=== PATIENT | male | born 1990 | race Caucasian/White ===

== ENCOUNTER 2019-01-04 16:58 | Emergency (ER) | payer MEDICAID, OTHER ==
--- NOTE | 2019-01-04 18:39 | EDPHY ---
H & P Stated Complaint: l shoulder inj snowboarding Time Seen by Provider: 01/04/19 18:23 HPI/ROS: CHIEF COMPLAINT: Left shoulder and chest pain HISTORY OF PRESENT ILLNESS: 28-year-old male presents with left shoulder and chest pain. While snowboarding today, he fell and landed directly onto his left shoulder. Immediate onset of left shoulder pain. The shoulder pain increases with left shoulder movement. He also got the wind knocked out of him and complaint of left anterior chest pain. The pain increases with deep inspiration. No shortness of breath. REVIEW OF SYSTEMS: complete 10 point ROS negative except as noted in the HPI - Personal History Current Tetanus Diphtheria and Acellular Pertussis (TDAP): Yes - Medical/Surgical History Hx Asthma: No Hx Chronic Respiratory Disease: No Hx Diabetes: No Hx Cardiac Disease: No Hx Renal Disease: No Hx Cirrhosis: No Hx Alcoholism: No Hx HIV/AIDS: No Hx Splenectomy or Spleen Trauma: No Other PMH: denies - Social History Smoking Status: Never smoked - Physical Exam Exam: General Appearance: Alert, pleasant Head: Atraumatic Eyes: No conjunctival erythema, PERRLA, EOMI ENT, Mouth: No hemotympanum, no oral trauma, no bony tenderness Neck: Nontender, full range of motion without pain Respiratory: Left upper chest wall tenderness, lungs clear bilaterally Cardiovascular: Regular rate and rhythm Abdomen: Abdomen is soft and nontender Skin: No lacerations, no abrasions Back: No midline T/L/S tenderness Extremities: Left shoulder-tenderness over the AC joint, no tenderness of the shoulder, shoulder rotation without pain. Neurological: Alert and oriented, nonfocal exam Psychiatric: Mood and affect normal Constitutional: Initial Vital Signs Temperature (C) 37.1 C 01/04/19 17:10 Heart Rate 83 01/04/19 17:10 Respiratory Rate 18 01/04/19 17:10 Blood Pressure 108/74 01/04/19 17:10 O2 Sat (%) 98 01/04/19 17:10 O2 Delivery Mode Room Air Allergies/Adverse Reactions: sulfamethoxazole [From Bactrim] Allergy (Verified 01/04/19 17:10) trimethoprim [From Bactrim] Allergy (Verified 01/04/19 17:10) Home Medications: Medication Instructions Recorded NK [No Known Home Meds] 01/04/19 Medical Decision Making - Diagnostics Imaging Results: Imaging Impressions Shoulder X-Ray 01/04/19 17:13 Impression: Normal. Nothing acute identified. Imaging: I viewed and interpreted images myself ED Course/Re-evaluation: This patient presents with a left AC separation. Ibuprofen 600 mg orally taken. Ortho follow-up. A sling was placed. Chest x-ray reveals no evidence rib fracture or pneumothorax. c/w chest wall strain. Warning signs discussed. Differential Diagnosis: Differential diagnosis includes though it is not limited to fracture, intracranial hemorrhage, pneumothorax, hemothorax, intra-abdominal hemorrhage. Departure - Departure Disposition: Home, Routine, Self-Care Clinical Impression: AC separation Condition: Good Instructions: Acromioclavicular Separation (ED) Additional Instructions: Ibuprofen 600 mg 3 times daily while the pain persists. Wear the sling for comfort. Referrals: Catrachito Chakraborty MD [Medical Doctor] - 5-7 days, if not improved
[2019-01-04 18:47] VITALS: BP 140/84
== END 2019-01-04 19:02 | disposition home or self-care (01) ==
DX: S43.102A Unspecified dislocation of left acromioclavicular joint, initial encounter (principal); V00.311A Fall from snowboard, initial encounter; Y93.23 Activity, snow (alpine) (downhill) skiing, snowboarding, sledding, tobogganing and snow tubing; Y92.838 Other recreation area as the place of occurrence of the external cause